=== PATIENT | female | born 1995 | race Caucasian/White ===

== ENCOUNTER 2017-07-11 00:40 | Emergency (ER) | payer SELFPAY ==
[~2017-07-11] VITALS: Ht 170.2 cm; Wt 63.5 kg
[2017-07-11 00:46] VITALS: BP 119/85
--- NOTE | 2017-07-11 00:54 | NUR ---
PT TAKEN TO BED 7
--- NOTE | 2017-07-11 01:00 | NUR ---
22/F C/O LOWER ABD PAIN X 1 DAY. NO C/O PAIN AT THIS TIME, PT REPORTS SHE TOOK ADVIL 400MG TODAY AND PAIN IS RELIEVED. REPORTS VOMITING X1 AND DIARRHEA ALL DAY. PMH: DEPRESSION, RX BUPRIPRION 300MG ONE DAILY.
--- NOTE | 2017-07-11 01:04 | NUR ---
Dr. Ocampo evaluating patient at bedside.
--- NOTE | 2017-07-11 01:15 | NUR ---
Patient discharged with v/s stable. Written and verbal after care instructions given and explained. Patient alert, oriented and verbalized understanding of instructions. Ambulatory with steady gait. All questions addressed prior to discharge. ID band removed. Patient advised to follow up with PMD. Rx of MACROBID 100MG 2 TAB PO X 7 DAYS; ZOFRAN ODT 4MG 1 TAB EVERY 8 HOURS PRN NAUSEA given. Patient educated on indication of medication including possible reaction and side effects. Opportunity to ask questions provided and answered.
[2017-07-11 01:20] VITALS: BP 119/85
== END 2017-07-11 01:15 | disposition home or self-care (01) ==
LOC: MED 00:40
DX: A08.4 Viral intestinal infection, unspecified (principal); N39.0 Urinary tract infection, site not specified; R03.0 Elevated blood-pressure reading, without diagnosis of hypertension
CPT/HCPCS: 81002; 81025; 99283